=== PATIENT | male | born 1965 | race Caucasian/White ===

== ENCOUNTER 2016-12-20 08:21 | Day surgery (SDC) | payer SELFPAY ==
[~2016-12-20 08:21] MED LIST: RINGERS SOLUTION,LACTATED 1,000 ML IV PRN; ceFAZolin SODIUM 2 GM in DEXTROSE 5 % IN WATER 50 ML IV PRN
[2016-12-20] MEDS ORDERED: BUPIVACAINE HCL/EPINEPHRINE 50 ML VIAL IJ ONE (09:54)
[2016-12-20] MEDS ORDERED: oxyCODONE HCL/ACETAMINOPHEN 1 TAB TABLET PO PRN (12:16)
[2016-12-20] MEDS ORDERED: MORPHINE SULFATE 2 MG/ML DISP.SYRIN IV PRN (12:17)
--- NOTE | 2016-12-20 13:16 | OR ---
Operative Report - Dictated Report Narrative: OPERATIVE REPORT DATE OF OPERATION: 12/20/2016 PREOPERATIVE DIAGNOSIS: Umbilical hernia POSTOPERATIVE DIAGNOSIS: Umbilical hernia with 2.5 cm fascial defect OPERATION: Repair of umbilical hernia using ventralex hernia patch SURGEON: Nestor Duffy MD ANESTHESIA: Gen. LMA Tereso Ruggiero CRNA INDICATIONS FOR PROCEDURE: The patient is a 51-year-old male with an enlarging and increasingly symptomatic umbilical hernia FINDINGS: Umbilical hernia with 3 cm fascial defect NARRATIVE OF PROCEDURE: The patient was identified preoperatively and prior to the administration of anesthetic a multidisciplinary timeout was observed. With the patient in the supine position SCDs were applied and 2 g of intravenous Ancef administered. Gen. LMA was administered. The patient's abdomen was prepped with Betadine and then again with DuraPrep. A transverse supraumbilical skin incision was outlined with a marking pen. The area was injected with 0.5% Marcaine with epinephrine. The skin incision was made sharply dissection was carried into subcutaneous tissue until the hernia sac was identified. This was dissected free from the surrounding subcutaneous tissue down to the fascial defect. Removal of the sac from the posterior aspect of the umbilical skin was not possible, so an additional transverse infraumbilical skin incision was made to simply remove the ellipse of skin. The umbilical skin was then passed to the back table. The sac was opened and under direct vision amputated back to the fascial margin. Palpation of the undersurface of the anterior abdominal wall revealed no local adhesions. A ventralex hernia patch was then placed through the defect and completely unfurled. The wings of the patch were then secured circumferentially to the fascial defect with interrupted sutures of 0 Ethibond. After receiving a correct sponge needle and instrument count attention was turned to closing the wound. Subcutaneous tissue was approximated over the hernia repair in 2 layers of interrupted sutures of 0 Vicryl. The skin was approximated with a running subcuticular suture of 4-0 Vicryl. The operative site was washed and dried. A dressing of Exofin, folded 4 x 4 and Medipore tape was applied. The operative procedure was terminated at this point. There was no measurable blood loss. The patient tolerated the anesthetic and procedure well without complication. No specimen was submitted due to the obvious gross benign appearance of the removed tissues. The patient was transferred to the recovery room awake extubated and in stable condition. The patient remained stable throughout a period of postoperative observation. He was able to tolerate PO intake, his pain was controlled with by mouth Percocet, and he was up without assistance. His dressings remained dry. I shared the operative findings with him. He was discharged home with instructions not to lift and not to drive. He is to keep the current dressing dry and intact for 48 hours, but then may shower and change the dressing daily or as needed. He was given a prescription for Percocet 5/325 mg #30 one or 2 PO every 4-6 hours as needed for discomfort. He has phone numbers to call prn signs of wound infection or hematoma. A return office appointment was made for 1 week. Reviewed and electronically signed
[2016-12-20 14:01] VITALS: BP 135/77
== END 2016-12-20 08:22 | disposition home or self-care (01) ==
LOC: AMB 08:21
PROVIDERS: ATTEND Surgery
PROC: 0WUF0JZ Supplement Abdominal Wall with Synthetic Substitute, Open Approach (ICD-10-PCS; principal; 2016-12-20 10:00)
DX: K42.9 Umbilical hernia without obstruction or gangrene (principal); K21.9 Gastro-esophageal reflux disease without esophagitis; F17.200 Nicotine dependence, unspecified, uncomplicated; Z68.30 Body mass index [BMI] 30.0-30.9, adult

== ENCOUNTER 2017-09-03 18:22 | Emergency (ER) | payer SELFPAY ==
[2017-09-03 18:58] LABS: Hematocrit 38.2 % (42.0-52.0); Hemoglobin 13.3 gm/dL (13.5-18.0); Mean Cell Volume 99.7 fl (78-100); Mean Corpuscular Hemoglobin 34.7 pg (27-31); Mean Corpuscular Hgb Conc 34.8 g/dl (32-36); Neutrophil # 3.9 K/mm3 (1.3-6.0); Neutrophil % 52.6 % (42-75.0); Platelet Count 238 K/mm3 (150-450); Red Blood Count 3.83 M/mm3 (4.7-6.0); Red Cell Distribution Width 12.1 % (11.5-14.0); White Blood Count 7.4 K/mm3 (4.0-10.5)
[2017-09-03 19:12] LABS: Albumin * 3.6 gm/dl (3.4-5.0); Anion Gap 12.8 mmol/L (6.8-13.8); BUN/Creatinine Ratio 13.2 (9.0-21.6); Bilirubin, Total 0.3 mg/dL (0.0-1.1); Ca. Corrected For Albumin 7.4 mg/dL (8.4-10.2); Calcium * 7.4 mg/dL (7.9-10.9); Carbon Dioxide 26.9 mmol/L (24-32.6); Magnesium 2.1 mg/dL (1.2-2.8); Potassium 3.7 mmol/L (3.4-4.6); Total Protein 6.9 gm/dL (6.2-8.2)
[2017-09-03 19:23] VITALS: BP 133/88
[2017-09-03] MEDS ORDERED: DIPHTH,PERTUSS(ACELL),TET VAC 0.5 ML VIAL IM ONE ×2 (19:34→20:00)
--- NOTE | 2017-09-03 19:34 | ERNOTE ---
Medical Problem HPI - Narrative Date of Service: 09/03/17 - General Chief Complaint: Laceration Time Seen by Provider: 09/03/17 18:30 Source: patient Exam Limitations: intoxication - Immun/Allergies/Home Medications Immunizations: IMMUNIZATION HX Immunizations Up to Date Yes Allergies/Adverse Reactions: Allergies No Known Allergies Allergy (Verified 09/03/17 18:34) Home Medications: HOME MEDICATIONS Ranitidine HCl [Zantac 75] 75 mg PO BID PRN 12/12/16 [Last Taken Unknown] oxyCODONE HCL/ACETAMINOPHEN [Percocet 5 MG/325 MG] 2 tab PO Q4H PRN #30 tablet 12/20/16 [Last Taken Unknown] Sulfamethoxazole/Trimethoprim [Bactrim Ds] 1 tab PO BID #10 tab 09/03/17 [Last Taken Unknown] - History of Present History Narrative: Patient states that he tripped over one at home and struck his face primarily the nose with some of the bridge and some on the forehead between the eyebrows. Patient has 2 superficial lacerations on the area between the eyebrows and at the base of the nose and he has approximate [address] the way across the middle of the nose on the top. Timing: constant Severity: moderate Review of Systems - Review of Systems Constitutional: Present: See HPI EYE: Present: no symptoms reported ENT: Present: See HPI Respiratory: Present: no symptoms reported Cardiology: Present: no symptoms reported Gastrointestinal/Abdominal: Present: no symptoms reported Genitourinary: Present: no symptoms reported Musculoskeletal: Present: no symptoms reported Skin: Present: no symptoms reported Neurological: Present: no symptoms reported Endocrine: Present: no symptoms reported Hematologic/Lymphatic: Present: no symptoms reported Psych: Present: no symptoms reported - Patient's Past Medical History Patient History - Medical: GERD Patient History - Cardiac/Respiratory: No pertinent hx Patient History - Cancer: No Hx of Cancer Patient History - Surgical Procedures: Hernia Repair Patient History - Other: None - Family History Mother Family History - Medical: , Other Family History - Cardiac/Respiratory: Other Family History - Cancer: No pertinent family hx Father Family History - Medical: , Other Family History - Cardiac/Respiratory: No pertinent hx Family History - Cancer: No pertinent family hx - Social History Living Situations: home Abuse History: No History of abuse Psych History: No pertinent hx Smoking Status: Current every day smoker Alcohol Use: heavy Drug Use: none - Immunizations Immunizations Up to Date: Yes Physical Exam - Physical Exam General Appearance: Present: wd/wn, alert, moderate distress Head Exam: Present: other - patient has the lacerations as noted to the area between the eyebrows at the base of the nose and the extensive laceration across the top bridge of the nose Eye Exam: Normal inspection: bilateral, PERRL: bilateral Ears, Nose, Throat: Present: normal pharynx, other - lacerations as noted Neck: Present: normal inspection, nontender Respiratory: Present: no respiratory distress, normal breath sounds, no accessory muscle use, chest nontender, lungs clear Cardiovascular/Chest: Present: regular rate, rhythm, no murmur, normal peripheral pulses Gastrointestinal/Abdominal: Present: normal bowel sounds, nontender, nondistended, soft, no organomegaly Rectal Exam: Present: deferred Back Exam: Present: normal inspection, normal range of motion Extremity Exam: Present: normal inspection, non-tender, no edema, normal range of motion Neurological Exam: Present: alert, oriented, normal mood/affect Skin Exam: Present: normal color, warm/dry Lymphatic Exam: Present: no adenopathy ED Progress - Results and Orders Patient's Lab Results:: I have reviewed the patient's lab results. - Vital Signs Patient's Vital Signs:: I have reviewed the patient's vital signs. Vital Signs: Vital Signs 09/03/17 09/03/17 09/03/17 18:28 18:57 19:21 Temperature 36.8 C 36.6 C Pulse Rate 88 84 82 Respiratory 16 14 20 Rate Blood Pressure 128/88 128/88 133/88 O2 Sat by Pulse 96 96 97 Oximetry - Progress/Reassessment Chief Complaint: Laceration Progress:: Improved Procedures Face Anesthesia: 1% Lidocaine I & D Prep: sterile drapes applied Wound's Depth/Shape: into subcutaneous Wound Explored: clean Wound Intervention: irrigated w/saline Distal NVT: neuro/vasc intact Suture Size/Type: 5-0, nylon Number of Sutures: 13 Comment: The other 2 superficial lacerations required Dermabond to close them up and they both measured 1 cm in length Plan - Plan Plan: Despite strong recommendations by me patient refused a head CT and maxillofacial CT. The deep wound across the bridge of the nose was closed and bacitracin was applied and the patient was told the sutures need to stay in for at least 7 days given the depth of the wound. Patient has a friend to come and get him and give him a ride home and they will stay with him tonight. He was informed of the possibility of an infection given the extensive nature of the wound and he agrees to take the antibiotics as prescribed and return in 7 days for suture removal. Departure Clinical Impression: Alcohol intoxication Qualifiers: Complication of substance-induced condition: uncomplicated Qualified Code(s): F10.920 - Alcohol use, unspecified with intoxication, uncomplicated Facial laceration Qualifiers: Encounter type: initial encounter Qualified Code(s): S01.81XA - Laceration without foreign body of other part of head, initial encounter - Departure Disposition: Home self-care Condition: Good Instructions: Facial Laceration, [id number], Alcohol Intoxication, Easy-to- Read Prescriptions: Sulfamethoxazole/Trimethoprim [Bactrim Ds] 1 tab PO BID #10 tab
[2017-09-03] MEDS ORDERED: AMOX TR/POTASSIUM CLAVULANATE 875 MG TABLET PO ONE (19:40)
[2017-09-03] MEDS ORDERED: AMOX TR/POTASSIUM CLAVULANATE 875 MG TABLET ONE (19:40)
[2017-09-03] MEDS ORDERED: TETANUS AND DIPHTHERIA TOXOID 0.5 ML SYRG IM ONE (19:48)
== END 2017-09-03 20:01 | disposition home or self-care (01) ==
LOC: ER 18:22
PROC: 0JQ10ZZ Repair Face Subcutaneous Tissue and Fascia, Open Approach (ICD-10-PCS; principal; 2017-09-03)
DX: S01.81XA Laceration without foreign body of other part of head, initial encounter (principal); F10.920 Alcohol use, unspecified with intoxication, uncomplicated; Z23 Encounter for immunization; F17.200 Nicotine dependence, unspecified, uncomplicated; W01.10XA Fall on same level from slipping, tripping and stumbling with subsequent striking against unspecified object, initial encounter; Y92.009 Unspecified place in unspecified non-institutional (private) residence as the place of occurrence of the external cause
CPT/HCPCS: 12014; 36415; 80053; 83735; 85025; 90471; 90715; 99284; G0481